=== PATIENT | male | born 1945 | race Caucasian/White ===

== ENCOUNTER 2021-07-11 08:15 | Day surgery (SDC) | payer MEDICARE ==
[2021-07-10 10:11] VITALS: BMI 25.9
--- NOTE | 2021-07-11 07:15 | P.GSHP ---
History of Present Illness H&P Date: 07/11/21 CHIEF COMPLAINT: Colon screen HISTORY OF PRESENT ILLNESS: The patient is a 76-year-old male who presents for colon screen. Lower endoscopy was offered for further evaluation and management. PAST MEDICAL HISTORY: Please see list. PAST SURGICAL HISTORY: Please see list. MEDICATIONS: Please see list. ALLERGIES: Please see list. SOCIAL HISTORY: No illicit drug use FAMILY HISTORY: No reports of Crohn disease or ulcerative colitis. REVIEW OF ORGAN SYSTEMS: CONSTITUTIONAL: No reports of fevers or chills. PHYSICAL EXAM: VITAL SIGNS: Stable GENERAL: Well-developed pleasant in no acute distress. HEENT: No scleral icterus. Extraocular movements grossly intact. Moist buccal mucosa. NECK: Supple without lymphadenopathy. CHEST: Unlabored respirations. Equal bilateral excursions. CARDIOVASCULAR: Regular rate and rhythm. Distal 2+ pulses. ABDOMEN: Soft, nontender, nondistended. MUSCULOSKELETAL: No clubbing, cyanosis, or edema. ASSESSMENT: 1. Colon screen. PLAN: 1. 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 COLONOSCOPY, Past Anesthesia/Blood Transfusion Reactions: No Reported Reaction Smoking Status: Former smoker - Past Family History Mother Family Medical History: Cancer Medications and Allergies Home Medications Medication Instructions Recorded Confirmed Type ALPRAZolam [Xanax] 0.25 mg PO TID PRN 02/06/15 07/10/21 History Albuterol Inhaler (Mhu) [Ventolin 1 - 2 puff INHALATION RT-TID 02/06/15 07/10/21 History Hfa Inhaler (Mhu)] Budesonide [Pulmicort Flexhaler] 2 puff INHALATION RT-BID PRN 02/06/15 07/10/21 History Omeprazole 40 mg PO AC-BRKFST 02/06/15 07/10/21 History Acetaminophen Tab [Tylenol] 500 mg PO Q6H PRN 03/30/15 07/10/21 History Albuterol Nebulized [Ventolin 2.5 mg INHALATION Q6H #120 nebu 04/02/15 07/10/21 Rx Nebulized] EPINEPHrine [Primatene Mist] 1 puff INHALATION DAILY 07/10/21 07/10/21 History Fluticasone Nasal [place] [Flonase 1 spray EA NOSTRIL DAILY 07/10/21 07/10/21 History Nasal [place]] Allergies Allergy/AdvReac Type Severity Reaction Status Date / Time hydrocodone bitartrate AdvReac Severe Hallucinati Verified 07/10/21 10:00 [From Vicodin] ons
[~2021-07-11 08:15] MED LIST: LACTATED RINGERS 1,000 ML IV SCH; LIDOCAINE 1% (10MG/ML) FOR IV START INTRADERMA PRN
[2021-07-11 08:56] VITALS: RESP 16; TEMP 97.1
[2021-07-11] MEDS ORDERED: PROPOFOL 10 MG/ML 20 ML VIAL IV ONE (09:22)
--- NOTE | 2021-07-11 09:48 | P.PCN ---
Date of Procedure: 07/11/21 Description of Procedure: PREOPERATIVE DIAGNOSIS: Personal history of colon polyps POSTOPERATIVE DIAGNOSIS: Personal history of colon polyps Tubular adenoma transverse colon History of sigmoid colectomy OPERATION: Colonoscopy to the ileocecal valve and appendiceal orifice, cecum Colonoscopy with hot snare polypectomy SURGEON: Briana Law MD. ANESTHESIA: MAC. INDICATIONS: The patient is an 76-year-old male who presents family history of malignant colon polyps and personal history of colon polyps. Last colonoscopy 5 years. Benefits and risks were described and informed consent was obtained. DESCRIPTION OF PROCEDURE: The patient had undergone Sutab prep. The patient had been brought into the operating room and laid in the left lateral decubitus position. After adequate intravenous sedation, the rectum was examined with 2% lidocaine jelly. The prostate was unremarkable. No external hemorrhoids were encountered. The rectal tone was within normal limits. No lesions were palpated in the rectal vault. An Olympus colonoscope was advanced until the cecum, ileocecal valve and appe ndiceal orifice were clearly viewed. The prep was good. Presence of sigmoid anastomosis from prior colectomy was found. Colonic polyps were found and removed. No evidence of focal colitis was found. Retroflexion of the scope demonstrated grade 2 internal hemorrhoids without active bleeding or inflammation. The colon was desufflated. The patient had tolerated the procedure well. Withdrawal time was over 6 minutes. FINDINGS: Aronchick preparation quality scale 2 (1-5) Internal hemorrhoids, grade 2 No external hemorrhoids No arteriovenous malformations. Sigmoid colectomy anastomosis Removal of 1 polyps: - Snare polypectomy proximal transverse colon, 8 mm tubulovillous adenoma polyp. No focal colitis. RECOMMENDATIONS: Repeat colonoscopy in 3 years, 2024 Plan - Discharge Summary Discharge Rx Participant: No New Discharge Prescriptions: Continue Albuterol Inhaler (Mhu) [Ventolin Hfa Inhaler (Mhu)] 1 - 2 puff INHALATION RT-TID ALPRAZolam [Xanax] 0.25 mg PO TID PRN PRN Reason: Anxiety Budesonide [Pulmicort Flexhaler] 2 puff INHALATION RT-BID PRN PRN Reason: Shortness Of Breath Or Wheezing Acetaminophen Tab [Tylenol] 500 mg PO Q6H PRN PRN Reason: Pain Albuterol Nebulized [Ventolin Nebulized] 2.5 mg INHALATION Q6H #120 nebu Fluticasone Nasal [place] [Flonase Nasal [place]] 1 spray EA NOSTRIL DAILY EPINEPHrine [Primatene Mist] 1 puff INHALATION DAILY Discharge Medication List ALPRAZolam [Xanax] 0.25 mg PO TID PRN 02/06/15 [History] Albuterol Inhaler (Mhu) [Ventolin Hfa Inhaler (Mhu)] 1 - 2 puff INHALATION RT- TID 02/06/15 [History] Budesonide [Pulmicort Flexhaler] 2 puff INHALATION RT-BID PRN 02/06/15 [History] Acetaminophen Tab [Tylenol] 500 mg PO Q6H PRN 03/30/15 [History] Albuterol Nebulized [Ventolin Nebulized] 2.5 mg INHALATION Q6H #120 nebu 04/02/15 [Rx] EPINEPHrine [Primatene Mist] 1 puff INHALATION DAILY 07/10/21 [History] Fluticasone Nasal [place] [Flonase Nasal [place]] 1 spray EA NOSTRIL DAILY 07/10/21 [History] Follow up Appointment(s)/Referral(s): Briana Law MD [STAFF PHYSICIAN] - As Needed Patient Instructions/Handouts: Colorectal Polyps (GEN) Activity/Diet/Wound Care/Special Instructions: Repeat colonoscopy in 3 years, 2024 Discharge Disposition: HOME SELF-CARE
[2021-07-11 10:12] VITALS: BP 150/69; PULSE 55
== END 2021-07-11 10:47 | disposition home or self-care (01) ==
LOC: ORWHC2ENDO 08:15
PROVIDERS: ATTEND Surgery Plastic and Reconstructive Surgery
DX: Z12.11 Encounter for screening for malignant neoplasm of colon (principal); D12.3 Benign neoplasm of transverse colon; K64.1 Second degree hemorrhoids; K21.9 Gastro-esophageal reflux disease without esophagitis; Z86.010 Personal history of colon polyps; Z90.49 Acquired absence of other specified parts of digestive tract; Z80.0 Family history of malignant neoplasm of digestive organs; I10 Essential (primary) hypertension; J44.9 Chronic obstructive pulmonary disease, unspecified; Z87.11 Personal history of peptic ulcer disease; Z87.19 Personal history of other diseases of the digestive system; Z87.891 Personal history of nicotine dependence; Z79.899 Other long term (current) drug therapy; Z88.5 Allergy status to narcotic agent
CPT/HCPCS: 88305; 45385; J2704